=== PATIENT | female | born 2005 | race Caucasian/White ===

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

== ENCOUNTER → 2024-03-05 13:29 | Outpatient (BNVA) | payer OTHER, SELFPAY | PROVIDERS: PCP Pediatrics; Visit Provider Physician Assistant Surgical ==

== ENCOUNTER 2024-04-28 08:06 | Outpatient (AMB) | payer OTHER, SELFPAY ==
--- NOTE | 2024-04-28 08:43 | MHC.OFFVISWM ---
VS Expanded 04/28/24 09:00 Height 5 ft 2.5 in Weight 253 lb 4 oz BMI 45.6 Body Fat % 46.6 Body Fat Mass 118.2 Fat Free Mass 135.2 Visceral Fat Rating 12 Body Water % 38.5 Body Water Mass 97.4 Basal Metabolic Rate/Score 1,992 Intake Visit Reasons: [employer] SWL BMI 44.9 Allergies No Known Allergies Allergy (Verified 04/28/24 08:43) Medication List - Last Reconciled 04/28/24 by Josias Fiore MD dextroamphetamine-amphetamine 30 mg ER (Adderall XR) 30 mg PO DAILY norethindrone (contraceptive) 0.35 mg PO DAILY HPI HPI [employer] SWL BMI 44.9: Details: Start time: 8.38am, End time: 9.18am ?I spent 35 minutes speaking with the patient on the phone plus an additional 5 minutes reviewing and updating records for a total of 40 minutes HPI Comments Details: Previous weight loss effforts: [facility] program Wakes up: 5.30am, Sleeps: 8.30pm Breakfast: skips Lunch: 12.30pm (keto bread, peanuts, crackers) Dinner: 5pm (beans, chicken, beef, pork, rice) Snacks: 10am (fruit), Exercise: has a home treadmill Fluids: coffee: none, tea: (2/wk pineapple flavor), soda: none, juice: cranberry daily, ETOH: none PFSH Medical History (Updated 04/28/24 @ 08:48 by Josias Fiore MD) ADHD Tonsillectomy planned No known health problems Surgical History Hx of breast reduction, elective Hx of tonsillectomy Family History Mother No problems noted. Father No problems noted. Sister No problems noted. Brother No problems noted. Brother No problems noted. Social History Alcohol intake: never Patient Tobacco Use Status: Never used Tobacco Female Reproductive History Menstrual Age of Menarche: 12 Telehealth Telehealth Telehealth Platform: Telephone Location of provider rendering services: practice address Location of patient: address on file Patient Identification confirmed using: Name, : Yes Telehealth method: voice only Patient verbally consented to treatment: Yes Patient verbally consented to billing insurance company: Yes Patient informed of any privacy concerns related to visit: Yes Minutes spent on Phone/Video with Pt.: 40 Assessment & Plan Assessment & Plan (1) Morbid obesity: Code(s): E66.01 - Morbid (severe) obesity due to excess calories Category: Medical Plan: 1.? Plan for lap sleeve gastrectomy. If diaphragmatic or ventral hernias are present at time of surgery, these will be repaired laparoscopically as well. Risks and complications include possible conversion to an open procedure, anastomotic leak, bleeding requiring transfusion, small bowel obstruction, , DVT and pulmonary embolism, cardiac, or pulmonary complications, as terminal system operator complications such as anastomotic ulcer, insufficient weight loss and vitamin deficiencies. I emphasized the importance of close follow-up, adherence to instructions and good communication. 2. You will receive a link of our software irchard to generate an individualized nutritional and exercise plan specific for you. Please send me a screenshot of the plans you will generate Meal to include lean meat (beef, fish, pork, turkey, chicken), or togolese yogurt, or egg whites, or beans with a salad with olive oil and fruits (berries, pears, apples, kiwi). Avoid salt, breads, potatoes, rice, pasta, desserts. ?3. If you choose shakes, each shake would be drunk slowly, like coffee in a period of 2 hours. ?4. If you choose bars, cut each bar in 4 pieces and eat each piece in 30min ?to make each bar last 2 hours. ?5. I emphasized the importance of measuring accurately the food portion and measure it when serving the food in plate ?6. The meal portions include a specific number of forks of meat and salad. You always eat the meat portion but you can replace up to half of salad/vegetables portion with rice, potatoes or pasta, or a fruit ?if you like. The less you do it the better weight loss will be. ?7. One full-size fork is what it can be scooped on the fork without falling aside and not what can be bit with the fork. Use regular forks like those you find in a typical restaurant. ?8.? Please send me weight measurements as soon as possible and then once a week. Always include your diet and exercise plan. 9. The best choice would be to purchase a stationary bike, elliptical or treadmill at home that can track calories. Let me know if you do so I can give you an exercise plan. ?10.?It is important of avoiding and for at least 18 months postoperatively and has been discussed at the infosession. ?11. Goal is to lose at least 1.5-2lbs per week ?12. Goal to lose 10% of your weight before surgery, which is about 25lbs. Ultimate weight goal: 228lbs before surgery 13. Please follow the diet plan exactly without any change. If you don't like something about the plan or you feel hungry you need to communicate with me so I can help you revise the plan. You should not change the plan yourself. 14. To be scheduled for EGD to assess the anatomy of the stomach. The possibility of biopsies was discussed. Patient needs to avoid use of NSAIDs and aspirin for 1 week prior to EGD. Risks of perforation and bleeding was discussed with the patient. This will be an outpatient procedure with IV sedation.
[2024-04-28 09:00] VITALS: BMI 45.6
== END 2024-04-28 09:19 | disposition home or self-care (01) ==
LOC: HO.HBS 08:06
PROVIDERS: PCP Pediatrics; Visit Provider Surgery
DX: E66.01 Morbid (severe) obesity due to excess calories (principal); Z68.54 Body mass index [BMI] pediatric, 95th percentile for age to less than 120% of the 95th percentile for age
CPT/HCPCS: 99215

== ENCOUNTER → 2024-04-28 08:06 | Outpatient (BNVA) | payer OTHER, SELFPAY | PROVIDERS: PCP Pediatrics; Visit Provider Surgery ==

== ENCOUNTER 2024-05-19 16:21 | Outpatient (AMB) | payer OTHER, SELFPAY ==
--- NOTE | 2024-05-19 16:14 | MHC.WMTHER ---
Intake Intake Visit Reasons: TV BH Intake Allergies No Known Allergies Allergy (Verified 04/28/24 08:43) [facility] Medical History (Updated 04/28/24 @ 08:48 by Josias Fiore MD) ADHD Tonsillectomy planned No known health problems Surgical History Hx of breast reduction, elective Hx of tonsillectomy Family History Mother No problems noted. Father No problems noted. Sister No problems noted. Brother No problems noted. Brother No problems noted. Social History Alcohol intake: never Patient Tobacco Use Status: Never used Tobacco Female Reproductive History Menstrual Age of Menarche: 12 Behavioral Health Assessment Weight Management Therapy Therapy Notes Details Patient is looking to have weight loss surgery to help improve her health and quality of life. She is not in therapy currently but was in the past. She takes medication for ADHD perscribed by her doctor. She has no history of drug or alcohol abuse. Pt has no history of inpatient psychiatric admissions. Pt stated that she worries about her health due to her family history. Presenting Concerns Referral Source provider Reason for referral weight loss surgery evaluation Precipitating Event obesity Living Situation Current Living Situation Relative's/Guardian's Sydnie At risk of losing current housing? No Satisfied with current living situation? Yes Comments Pt lives with her mom, step father, and three siblings, 16, 11, and 8 years old. Food/Weight/Diet Expectations of change weight loss and maintenance History/Relationship with food Pt would skip meals all day and then over eat dinner and on. She would drink juices, smoothies in addition to food, take out, fast food. Pt reported that she would not let herself get hungry. History/Relationship with weight Pt reported that in 2019, she was not eating and over exercising, she weighed 120lbs. She worried about how she looked and being picked up. Pt reported that she was overweight as a child. She is currently at her heaviest. History/Relationship with dieting self diets, restricting Binge Eating Do you frequently eat large amounts of food in short periods of time, not feeling physically hungry? No Do you feel out of control when you eat a large amount of food in a short period of time? No Do you eat large amounts of food rapidly and typically alone? No Night Eating Do you wake up at least once during the night to eat? No If you wake up in the night, do you find that it is necessary to eat something in order to fall back asleep? No Do you have little or no appetite in the morning and feel very hungry in the evening, often overeating between dinner and when you go to bed? Yes Social History Family history and relationship Pt is single with no children and lives with her mother and siblings, She denied any history of trauma or abuse. 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 none Education Highest grade completed high school Preferred learning style Auditory, Verbal, Written, Learn by doing and Visual Currently enrolled in educational program? No Interested in further educational program? 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 No Meaningful activities walking, Financial Situation Describe current financial situation Comfortable Financial assistance? None Service Service? No Mental Health and Addiction Treatment Current/Past substance abuse? No Medical and Physical Health Summary Physical exam in the last year? Yes Pain Screening Current pain? No Pain in the last few months? No Medications Is the patient compliant with medications? Yes Does the patient have Bales Guardian in place? Not applicable Does the patient use complimentary health approaches? No Trauma/Abuse History History of trauma? No Questionnaires PHQ-9 Over the last 2 weeks, how often have you been bothered by any of the following problems? 1. Little interest or pleasure in doing things: several days 2. Feeling down, depressed, or hopeless: more than half the days 3. Trouble falling or staying asleep, or sleeping too much: not at all 4. Feeling tired or having little energy: several days 5. Poor appetite or overeating: nearly every day 6. Feeling bad about yourself - or that you are a failure or have let yourself or your family down: several days 7. Trouble concentrating on things, such as reading the newspaper or watching television: not at all 8. Moving or speaking so slowly that other people could have noticed. Or the opposite - being so fidgety or restless that you have been moving around a lot more than usual: not at all 9. Thoughts that you would be better off or of hurting yourself in some way: not at all Total score: 8 Source: Developed by Drs. Patrick Laguna, Stefani Aguila, Low Lechuga and colleagues, with an educational lili from [employer]. Binge Eating Scale Group 1 A. I don't feel self-conscious about my wt. or body size when I'm with others. B. I feel concerned about how I look to others, but it normally does not make me fell disappointed with myself C. I do get self-conscious about my appearance and wt. which makes me feel disappointed in myself. D. I feel very self-conscious about my wt. and frequently I feel intense shame and disgust for myself. I try to avoid social contacts because of my self-consciousness. Response Group 1: D Group 2 A. I don't have any difficulty eating slowly in the proper manner. B. Although I seem to gobble down foods, I don't end up feeling stuffed because of eating to much. C. At times, I tend to eat quickly and then, I feel uncomfortably full afterwards. D. I have the habit of bolting down my food, without really chewing it. When this happens I usually feel uncomfortably stuffed because I've eaten to much. Response Group 2: D Group 3 A. I feel capable to control my eating urges when I want to. B. I feel like I have failed to control my eating more than the average person. C. I feel utterly helpless when it comes to feeling in control of my eating urges. D. Because I feel so helpless about controlling my eating I have become very desperate about trying to get control. Response Group 3: D Group 4 A. I don't have the habit of eating when I'm bored. B. I sometimes eat when I'm bored, but often I'm able to get busy and get my mind off food. C. I have a regular habit of eating when I'm bored, but occasionally, I can use some other activity to get my mind off eating. D. I have a strong habit of eating when I'm bored. Nothing seems to help me breath the habit. Response Group 4: C Group 5 A. I'm usually physically hungry when I eat something. B. Occasionally, I eat something on impulse even though I really am not hungry. C. I have the regular habit of eating foods, that I might not really enjoy, to satisfy a hungry feeling even though physically, I don't need the food. D. Although I'm not physically hungry, I get a hungry feeling in my mouth that only seems to be satisfied when I eat a food, like sandwich, that fills my mouth. Sometimes, when I eat the food to satisfy my mouth hunger, I then spit the food out so I won't gain weight. Response Group 5: B Group 6 A. I don't feel any guilt or self-hate after I overeat. B. After I overeat, occasionally I feel guilt or self-hate. C. Almost all the time I experience strong guilt or self-hate after I overeat. Response Group 6: C Group 7 A. I don't lose total control of my eating when dieting even after periods when I overeat. B. Sometimes when I eat a forbidden food on a diet, I feel like I blew it and eat even more. C. Frequently, I have the habit of saying to myself, I've blown it now, why not go all the way, when I overeat on a diet. When that happens I eat more. D. I have a regular habit of starting a strict diets for myself but I break the diets by going on an eating binge. My life seems to be either a feast or famine. Response Group 7: D Group 8 A. I rarely eat so much food that I feel uncomfortably stuffed afterwards. B. Usually about once a month, I each such a quantity of food, I end up feeling very stuffed. C. I have regular periods during the month when I eat large amounts of food, either at mealtime or at snacks. D. I eat so much food that I regularly feel quite uncomfortable after eating and sometimes a bit nauseous. Response Group 8: D Group 9 A. My level of calorie intake does not go up very high or go down very low on a regular basis. B. Sometimes after I overeat, I will try to reduce my caloric intake to almost nothing to compensate for the excess calories I've eaten. C. I have a regular habit of overeating during the night. It seems that my routine is not to be hungry in the morning but overeat in the evening. D. In my adult years, I have had week-long periods where I practically starve myself. This follows periods when I overeat. It seems I live a life of either feast or famine. Response Group 9: C Group 10 A. I usually am able to stop eating when I want to. I know when enough is enough. B. Every so often, I experience a compulsion to eat which I can't seem to control. C. Frequently, I experience strong urges to eat which I seem unable to control, but at other times I can control my eating urges. D. I feel incapable of controlling urges to eat. I have a fear of not being able to stop eating voluntarily. Response Group 10: C Group 11 A. I don't have any problem stopping eating when I feel full. B. I usually can stop eating when I feel full but occasionally overeat leaving me feeling uncomfortably stuffed. C. I have a problem stopping eating once I start and usually I feel uncomfortably stuffed after I eat a meal. D. Because I have a problem not being able to stop eating when I want, I sometimes have to induce vomiting to relieve my stuffed feeling. Response Group 11: C Group 12 A. I seem to eat just as much when I'm with others, Family social gatherings as when I'm by myself. B. Sometimes, when I'm with other persons, I don't eat as much as I want to eat because I'm self-conscious about my eating. C. Frequently, I eat only a small amount of food when others are present, because I'm very embarrassed about my eating. D. I feel so ashamed about overeating that I pick times to overeat when I know no one will see me. I feel like a closet eater. Response Group 12: D Group 13 A. I eat three meals a day with only an occasional between meal snack. B. I eat 3 meals a day, but I also normally snack between meals. C. When I am snacking heavily, I get in the habit of skipping regular meals. D. There are regular periods when I seem to be continually eating, with no planned meals. Response Group 13: D Group 14 A. I don't think much about trying to control unwanted eating urges. B. At least some of the time, I feel my thoughts are pre-occupied with trying to control my eating urges. C. I feel that frequently I spend much time thinking about how much I ate or about trying not to eat anymore. D. It seems to me that most of my waking hours are pre-occupied by thoughts about eating or not eating. I feel like I'm constantly struggling not to eat. Response Group 14: D Group 15 A. I don't think about food a great deal. B. I have strong craving for food but they last only for brief periods of time. C. I have days when I can't seem to think about anything else but food. D. Most of my days seem to be pre-occupied with thoughts about food. I feel like I live to eat. Response Group 15: B Group 16 A. I usually know whether or not I'm physically hungry. I take the right portion of food to satisfy me. B. Occasionally, I feel uncertain about knowing whether or not I'm physically hungry. A these times it's hard to know how much food I should take to satisfy me. C. Even though I might know how many calories I should eat, I don't have any idea what is a normal amount of food for me. Response Group 16: B Binge Eating Score: 37 Score less than 17 Minimal Risk Score between 18-26 Moderate Risk Score between 27-46 High Risk Assessment & Plan Assessment & Plan (1) ADHD: Code(s): F90.9 - Attention-deficit hyperactivity disorder, unspecified type (2) Vitamin D deficiency: Code(s): E55.9 - Vitamin D deficiency, unspecified (3) Morbid obesity: Code(s): E66.01 - Morbid (severe) obesity due to excess calories Plan PT has a history of under eating and overeating. We discussed the importance of learning to have a healthy and balanced rel. with food for rn long term care maitnenance. She was encouraged to reach out for help as needed. She is cleared for surgery when ready. Telehealth Telehealth Telehealth Platform: Telephone Location of provider rendering services: practice address Location of patient: address on file Patient Identification confirmed using: Name, : Yes Telehealth method: voice only Patient verbally consented to treatment: Yes Patient verbally consented to billing insurance company: Yes Patient informed of any privacy concerns related to visit: Yes Minutes spent on Phone/Video with Pt.: 40 Coding Level of Care Code Tele Psy Diag Eval (67695) Diagnoses ADHD F90.9 Vitamin D deficiency E55.9 Morbid obesity E66.01 Time Spent (min) 40
== END 2024-05-19 16:35 | disposition home or self-care (01) ==
LOC: HO.HBST 16:21
PROVIDERS: PCP Pediatrics; Visit Provider Counselor Mental Health
DX: F90.9 Attention-deficit hyperactivity disorder, unspecified type (principal); E55.9 Vitamin D deficiency, unspecified; E66.01 Morbid (severe) obesity due to excess calories
CPT/HCPCS: 90791

== ENCOUNTER → 2024-05-19 16:21 | Outpatient (BNVA) | payer OTHER, SELFPAY | PROVIDERS: PCP Pediatrics; Visit Provider Counselor Mental Health ==

== ENCOUNTER 2024-07-15 05:58 | Day surgery (SDC) | payer OTHER, SELFPAY ==
--- NOTE | 2024-07-14 16:03 | HO.ANESPROP2 ---
Documented by User: Shira Rebollar NP 07/14/24 16:03 HPI - Anesthesia Eval Consult details Narrative: 18yo F for Upper Endoscopy PMFSH Active Problems Active Problems: All Active Problems ADHD (Acute) Normal gynecologic examination (Acute) control counseling (Acute) Liver fibrosis (Acute) NAFLD (nonalcoholic fatty liver disease) (Acute) Vitamin D deficiency (Acute) Morbid obesity (Acute) Past Medical History Medical History ADHD Tonsillectomy planned No known health problems Family History Family History Mother No problems noted. Father No problems noted. Sister No problems noted. Brother No problems noted. Brother No problems noted. Surgical History Surgical History Hx of wisdom tooth extraction Hx of breast reduction, elective Hx of tonsillectomy Social History Social History Alcohol intake: never Patient Tobacco Use Status: Never used Tobacco Meds Allergies Allergy/AdvReac Type Severity Reaction Status Date / Time No Known Allergies Allergy Verified 07/15/24 06:15 Home Medications ?Medication ?Instructions ?Recorded ?Confirmed ?Last Taken ?Type dextroamphetamine-amphetamine ER 30 mg PO DAILY 03/19/23 07/15/24 Unknown History 30 mg 24hr capsule,extend release (Adderall XR) Assessment and Plan Assessment Anesthesia Assessment: Chart Reviewed Documented by User: Irene Anderson MD 07/15/24 09:23 PMFSH Active Problems Active Problems: All Active Problems ADHD (Acute) Normal gynecologic examination (Acute) control counseling (Acute) Liver fibrosis (Acute) NAFLD (nonalcoholic fatty liver disease) (Acute) Vitamin D deficiency (Acute) Morbid obesity BMI 45.5 Denies FATOUMATA Past Medical History Medical History ADHD Tonsillectomy planned No known health problems Family History Family History Mother No problems noted. Father No problems noted. Sister No problems noted. Brother No problems noted. Brother No problems noted. Family history of problems with anesthesia: No Surgical History Surgical History Hx of wisdom tooth extraction Hx of breast reduction, elective Hx of tonsillectomy History of Problems with Anesthesia: No Social History Social History Alcohol intake: never Patient Tobacco Use Status: Never used Tobacco Meds Allergies Allergy/AdvReac Type Severity Reaction Status Date / Time No Known Allergies Allergy Verified 07/15/24 06:15 Home Medications ?Medication ?Instructions ?Recorded ?Confirmed ?Last Taken ?Type dextroamphetamine-amphetamine ER 30 mg PO DAILY 03/19/23 07/15/24 Unknown History 30 mg 24hr capsule,extend release (Adderall XR) Exam Height,Weight and Vital Signs: Height 5 ft 2 in Weight 112.808 kg Vital Signs Temp Pulse Resp BP Pulse Ox O2 Del Method 97.1 F 84 15 111/70 98 Room Air 07/15/24 06:32 07/15/24 06:32 07/15/24 06:32 07/15/24 06:32 07/15/24 06:32 07/15/24 06:32 Pertinent Lab Results Pertinent Lab Results: Lab Results 07/15/24 Range/Units 06:15 Urine Test NEGATIVE (NEGATIVE) Airway Mallampati Class: II TM Dist: >3cm Neck ROM: Full Loose/Missing/Broken Teeth: No (Denies broken, loose, missing teeth) Heart: RRR Lungs: CTAB Assessment and Plan Assessment Anesthesia Assessment: Anesthesia Plan Discussed and Chart Reviewed Final Anesthetic Review Family History of Problems with Anesthesia: No History of Problems with Anesthesia: No NPO: Yes ASA Class: III Final Preanesthetic Review: No Changes in Pt Med Stat, Meds/Allgs Chart Reviewed, Consent Obtained/Reviewed and Anes Risks/Benef Reviewed Patient Risk: Intermediate Procedure Risk: Low Assessment/Block/Sedation in SS: Assess/Block/Sedation-SS Anesthetic Plan Anesthetic Plan: TIVA Disposition: Standard PACU
[2024-07-15 06:16] VITALS: BMI 45.5
[2024-07-15 06:32] VITALS: BP 111/70; PULSE 84; RESP 15; TEMP 36.2; O2SAT 98
[2024-07-15 06:38] LABS: UPreg QC Valid YES; Urine Pregnancy NEGATIVE (NEGATIVE)
[2024-07-15] MEDS: Lactated Ringers 1,000 ML 80 ML IVCONT (06:47)
--- NOTE | 2024-07-15 07:18 | MHC.SHP ---
Pre-Procedural Eval Section A - 24 Hr Update-Section A only Date of Service: 07/15/24 The patient is an INPATIENT: No The patient has been examined within 24 hours of the surgical procedure. The History & Physical has been completed within 30 days and I have reviewed it.: Yes Section B - Complete if H&P > 30 days Chief Complaint: Morbid (severe) obesity due to excess calories Relevant Family History (Specify if Yes): No Relevant Social History: None Present Medications: None Medical History: No relevant PMH History of Previous Operations: No relevant previous surgery Allergies: Allergies Allergy/AdvReac Type Severity Reaction Status Date / Time No Known Allergies Allergy Verified 07/15/24 06:15 Review of Systems Sugical H&P ROS: Negative: Constitution, Cardiovascular, Respiratory, Neurological, Psychiatric, Hem-Onc, Allergic/Immunologic, Gastrointestinal, Genitourinary, Musculoskeletal, Integumentary, Endocrine and Eyes/Ears/Nose/Throat Exam Surgical H&P Exam: Normal: HEENT, Normal: Heart, Normal: Lungs, Normal: Extremities, Normal: Abdomen, Normal: Skin and Normal: Neurological Plan Diagnosis/Plan: Unchanged (EGD to assess the anatomy of the stomach. Risks of bleeding or perforation were disucssed with the patient and she is in agreement with the plan.) I have reviewed the history and physical and performed a pertinent physical examination on my patient. No changes have occurred unless specified. Time Spent With Patient Time: Total time managing care of this patient today ____ minutes.
--- NOTE | 2024-07-15 08:00 | P.BOP_ITS ---
Brief Operative Note Date of Service: 07/15/24 Pre-op diagnosis: Morbid obesity Post-op diagnosis: same (Presence of some food contents) Procedure: PROCEDURE DATE: 07/15/2024 PREOPERATIVE DIAGNOSIS: Morbid obesity POSTOPERATIVE DIAGNOSIS: ?Same as above. 1) small hiatal hernia, 2) distal gastritis PROCEDURE: Shnaksza-oilctm-foswzwlraisj with biopsies Surgeon: ?Bart Fiore M.D.. Ph.D. Waste And Batting Waste Chopper: None ? Anesthesia: IV sedation Estimated blood loss: ?Minimal FINDINGS AND PROCEDURE: ? OPERATIVE INDICATIONS: ?The patient is a 18 year old female known to me who is interested in bariatric surgery. Based on this information I recommended an upper endoscopy to evaluate the anatomy of her stomach. Risks and complications of the surgery were discussed with the patient in advance particularly the poss ibility of perforation or bleeding that may require surgical intervention. The patient understood the risks and was in agreement with the plan. ? PROCEDURE: After informed consent was obtained by the patient, the patient was ?transferred to the Operating Room and was placed in the supine position.? After successful induction of IV sedation, a mouth block was inserted and the patient was placed in the left lateral decubitus position. An upper endoscopy was performed next, the oropharynx and esophagus appeared within the normal limits. There was no hiatal hernia. The z-line was smooth. One biopsy was obtained from the distal esophagus 2-3 cm proximal to the GE junction and two additional biopsies from the GE junction. The stomach was entered and it appeared to be of normal size. There was a small amount of food contents in the mid-stomach and not near the GE junction. There was no gastritis. There was no stricture or ulcer. A biopsy was obtained from the gastric fundus and the antrum. No significant bleeding was noted from any of the biopsy sites. Retroflexion of the scope revealed a normal GE junction. The scope was then advanced into the duodenum which appeared to be normal as well. At that point the duodenum ?and the stomach were decompressed and the scope was withdrawn from the patient's mouth. The patient extubated and was transferred in stable condition to the [facility] for further care. I was present and performed all steps of the procedure. There were no residents to assist with this case. Bart Fiore M.D., Ph.D. Surgeon: Josias Fiore MD Anesthesia: MAC Was an Waste And Batting Waste Chopper used for this Procedure?: No Estimated blood loss (mL): 0 IV fluids (mL): 400 Urine output (mL): 0 (No Flowers to record output) Pathology: other (1) antrum x1, 2) fundus x1, 3) GE junction x2, 4) distal esophagus x1) Condition: stable Disposition: PACU
[2024-07-15 08:02] VITALS: BP 104/56; PULSE 94; RESP 18; TEMP 36.2; O2SAT 99
[2024-07-15 08:17] VITALS: BP 112/70; PULSE 93; RESP 18; O2SAT 100
[2024-07-15 08:30] VITALS: BP 126/88; PULSE 79; RESP 17; TEMP 36.2; O2SAT 99
== END 2024-07-15 08:53 | disposition home or self-care (01) ==
PROVIDERS: PCP Pediatrics; Visit Provider Surgery
PROC: 0DJ08ZZ Inspection of Upper Intestinal Tract, Via Natural or Artificial Opening Endoscopic (ICD-10-PCS; CPT 43235; principal; 2024-07-15 07:30)
DX: E66.01 Morbid (severe) obesity due to excess calories (principal); K44.9 Diaphragmatic hernia without obstruction or gangrene; K29.60 Other gastritis without bleeding; Z79.899 Other long term (current) drug therapy; F90.9 Attention-deficit hyperactivity disorder, unspecified type; Z98.890 Other specified postprocedural states
CPT/HCPCS: 43239; 81025; 88305; 88313; 88342; J2704

== ENCOUNTER → 2024-07-15 05:58 | Outpatient (BNV) | payer OTHER, SELFPAY | PROVIDERS: PCP Pediatrics; Visit Provider Surgery | DX: K44.9 Diaphragmatic hernia without obstruction or gangrene (principal) | CPT/HCPCS: 43239 ==

== ENCOUNTER → 2024-08-25 08:40 | Outpatient (BNVA) | payer OTHER, SELFPAY | PROVIDERS: PCP Pediatrics; Visit Provider Surgery ==

== ENCOUNTER 2024-08-25 15:30 | Outpatient (AMB) | payer OTHER, SELFPAY ==
[2024-08-25 14:47] VITALS: BMI 41.5
--- NOTE | 2024-08-25 14:47 | A.OFFVIS_ITS ---
VS Expanded 08/25/24 14:47 Height 5 ft 2.5 in Weight 230 lb 6 oz BMI 41.5 Body Fat % 53.7 Body Fat Mass 123.8 Fat Free Mass 106.7 Visceral Fat Rating 23.6 Body Water % 31.8 Body Water Mass 73.3 Basal Metabolic Rate/Score 1,416 Intake Visit Reasons: TV Pre Op LSG 09/03/24 *SEE COMMENTS* Allergies No Known Allergies Allergy (Unverified 08/28/24 11:40) HPI HPI TV Pre Op LSG 09/03/24 *SEE COMMENTS*: Details: Start time: 3pm, End time: 3.30pm ?I spent 25 minutes speaking with the patient on the phone plus an additional 5 minutes reviewing and updating records for a total of 30 minutes HPI Comments Details: Overall weight loss: 22.8lbs, or 9% TBWL Is doing one Premier shake (1/2 bottle), 2 Build protein bars and one meal (8 forkfuls each) PFSH Medical History (Updated 08/28/24 @ 11:40 by Gali Hebert) Constipation ADHD Surgical History (Updated 08/28/24 @ 11:40 by Gali Hebert) S/P LASIK surgery of both eyes (06/12/24) History of esophagogastroduodenoscopy (EGD) (07/15/24) Hx of wisdom tooth extraction Hx of breast reduction, elective (~2021) Hx of tonsillectomy Family History (System 08/28/24 @ 11:40 by Gali Hebert) Mother No problems noted. Father No problems noted. Sister No problems noted. Brother No problems noted. Brother No problems noted. Social History (Updated 08/28/24 @ 14:13 by Ольга Clifford RN) Household Members: Family Housing: House Are you a primary nurse behavioral health care to a significant other at home: No Do you presently have visiting nurse or other home services: No 75 years or older and lives alone: No Alcohol intake: never Patient Tobacco Use Status: Never used Tobacco e-Cigarette/Vaping Use: Never Used Use of substances other than those prescribed or required for medical reasons: No Advance Directives: No Advance Directives Information Provided: Yes Advance Directives on File: No Healthcare Proxy: No Recently lost weight without trying: No Female Reproductive History Menstrual Age of Menarche: 12 Physical Exam Vital Signs: BMI result Body Mass Index 41.5 Telehealth Telehealth Telehealth Platform: Telephone Location of provider rendering services: practice address Location of patient: address on file Patient Identification confirmed using: Name, : Yes Telehealth method: voice only Patient verbally consented to treatment: Yes Patient verbally consented to billing insurance company: Yes Patient informed of any privacy concerns related to visit: Yes Minutes spent on Phone/Video with Pt.: 30 Assessment & Plan Assessment & Plan (1) Morbid obesity: Code(s): E66.01 - Morbid (severe) obesity due to excess calories Category: Medical Plan: 1. Plan for lap sleeve gastrectomy including upper GI endoscopy. All tests has been completed and reviewed and the patient is cleared for the surgery.? If diaphragmatic or ventral hernias are present at time of surgery, these will be repaired laparoscopically as well. Risks and complications were discussed in detail including possible conversion to an open procedure, anastomotic leak, bleeding requiring transfusion, small bowel obstruction, , DVT and pulmonary embolism, cardiac, or pulmonary complications, as detention complications such as anastomotic ulcer, insufficient weight loss and vitamin deficiencies. I emphasized the importance of close follow-up, adherence to instructions and good communication. So far she has proven to be an excellent communicator and very compliant with all our directions accomplishing a great weight loss. I believe that she is an excellent candidate and she is ready. 2. Preop prescriptions were provided and explained the purpose of each one. Need to be purchased preop. Start Pantoprazole now as you get it from the pharmacy, 1 pill per day. Sucralfate and Zofran are for after surgery as needed. 3. Bowel prep: please do 7 packets ?of Miralax mixing each one with a an 8oz glass of water, crystal light, gatorade zero, or propel ?on 09/01/24 and the same amount on 09/02/24. The Miralax you begin with one packet at a time in 8oz water or crystal light, gatorade zero, or propel ?as early in the day as you can and you do them back to back until you finish them. Continue the protein shakes during ?the bowel prep. 4. Needs to purchase 1oz medicine cups . 5. Needs to purchase Children's liquid Tylenol for postop pain control. 6. She needs to stop all the vitamins on 05/03/21. Avoid aspirin, motrin, Advil, Aleve, Ibuprofen, Naproxyn. Tylenol is OK. 7. She needs to purchase the Celebrate 4:1 protein shakes or the Celebrate multivitamins from the hospital's gift shop. 8. Will do basic preop blood work-up any day between Sunday10/02/22 and Sunday10/06/22 fasting for 12 hours and is scheduled to see the Anesthesiologist prior to the day of surgery. 9. Importance of adherence to postop folllow-up and recommendations was underscored and she understands that. 10. Continue toavoid food and bars and continue with 4 premade PREMIER protein shakes (HALF bottle EACH mixed with 4oz almond milk) at 11am-1pm, 2pm-4pm, 5pm- 7pm and 8pm-10pm one more WHOLE bottle PREMIER premade protein shake ?at 11pm- 1am 11. No soups, broths or V8 12. The patient's?medical?history has been reviewed and they are considered low risk for post op DVT and therefore DVT prophylaxis is not considered necessary. Travel after surgery was reviewed. The patient has not disclosed any travel plans during the first 30 days after surgery and they have been advised that within the first 30 days after surgery any bus, plane, train or car travel over 2 hours in duration is contraindicated due to the possibility of developing blood clots from immobility. Any travel, needs to include periods of ambulation of 10 minutes in duration every 2 hours.? Patient was instructed to discuss any plans for travel during this period with their bariatric surgeon.? 13. Please take at the day of surgery the following medications: NONE 14. Stop any control pills and don't use them for one month after surgery 15. Absolutely no smoking or vaping, or marijuana until the surgery and for at least the first 4 weeks. Only nicotine patches are allowed. 16. Send me weight measurements TODAY 08/25/24, on Sunday08/30/24 and then on Sunday09/03/24, the day of surgery before you go to the hospital. 17. Avoid any steroids by mouth for any reason. Let me know if someone prescribes them to you 18. These instructions supersede anything else you read in the handbook, anything you watched in videos or classes or you were told by any other provider. If there is any conflict, you follow the above instructions and nothing else. Orders: Orders Insulin 08/28/24 E66. - Morbid (severe) obesity due to excess calories Hemoglobin A1c 08/28/24 E66. - Morbid (severe) obesity due to excess calories Lipid Panel 08/28/24 E66. - Morbid (severe) obesity due to excess calories IRON PROFILE 08/28/24 E66. - Morbid (severe) obesity due to excess calories Comprehensive Met. Panel 08/28/24 E66. - Morbid (severe) obesity due to exc ess calories Vitamin B12 and Folate 08/28/24 E66. - Morbid (severe) obesity due to excess calories C Reactive Protein 08/28/24 E66. - Morbid (severe) obesity due to excess calories Vitamin B1 08/28/24 E66. - Morbid (severe) obesity due to excess calories TSH reflex Free T4 08/28/24 E66. - Morbid (severe) obesity due to excess calories H Pylori Breath Test 08/25/24 E66. - Morbid (severe) obesity due to excess calories Complete Blood Count Auto Diff 08/28/24 E66. - Morbid (severe) obesity due to excess calories Zinc 08/28/24 E66. - Morbid (severe) obesity due to excess calories Vitamin A 08/28/24 E66. - Morbid (severe) obesity due to excess calories Ferritin 08/28/24 E66. - Morbid (severe) obesity due to excess calories Vitamin D 25-OH Total 08/28/24 E66. - Morbid (severe) obesity due to excess calories Medications: New pantoprazole 40 mg PO DAILY 90 tabs 0RF K21.9 - Gastro-esophageal reflux disease without esophagitis sucralfate 10 mL PO BID 600 mL 2RF K21.9 - Gastro-esophageal reflux disease without esophagitis ondansetron Only take one every 12 hours as needed if you have nausea 4 mg PO Q12H 20 tabs 0RF nausea and vomiting R11.0 - Nausea polyethylene glycol 3350 Mix each measuring cup with 8oz of water, Crystal light, or Gatorade zero, or Propel and do 7 measuring cups on 09/01/24 and another 7 measuring cups on 09/02/24 17 grams PO DAILY 238 grams 0RF Z01.818 - Encounter for other preprocedural examination
== END 2024-08-29 13:04 | disposition home or self-care (01) ==
PROVIDERS: Visit Provider Surgery
DX: E66.01 Morbid (severe) obesity due to excess calories (principal)
CPT/HCPCS: 99214

== ENCOUNTER → 2024-08-28 10:46 | Outpatient (REF) | payer OTHER, SELFPAY ==
--- NOTE | 2024-08-28 10:54 | ECG_ITS ---
Test Reason : obesity Blood Pressure : / mmHG Vent. Rate : 055 BPM Atrial Rate : 055 BPM P-R Int : 134 ms QRS Dur : 084 ms QT Int : 432 ms P-R-T Axes : 001 008 018 degrees QTc Int : 413 ms Sinus bradycardia Minimal voltage criteria for LVH, may be normal variant ( R in aVL ) Borderline ECG When compared with ECG of 28-FEB-2023 14:10, No significant change was found Referred By: Josias Fiore Electronically Signed By:LUIS GARCIA
[2024-08-28 11:38] LABS: Basophils Absolute Auto 0.1 X10*3/uL (0.0-0.2); Eosinophils Absolute Auto 0.1 X10*3/uL (0.0-0.4); Neutrophils Percent Auto 72.5 % (45-73); PLT CLUMP 1; SCAN SMEAR FLAG 1
[2024-08-28 11:45] LABS: Estimated Average Glucose 103 mg/dL; Hemoglobin A1C 107.2794 umol/L; Hemoglobin A1c % 5.2 % (<6.0); Total Hemoglobin (HGBA1C) 3258.4548 umol/L
[2024-08-28 12:06] LABS: Basophils Percent Auto 0.4 % (0-2); Hematocrit 39.9 % (37.0-47.0); Hemoglobin 13.1 g/dl (12.0-16.0); Imm Gran Abs Auto 0.07 X10*3/uL (0.00-0.03); Imm Gran Pct Auto 0.6 % (0.0-0.4); Lymphocytes Absolute Auto 2.1 X10*3/uL (1.2-4.9); Lymphocytes Percent Auto 17.3 % (20-40); Mean Corpuscular HGB Conc 32.8 g/dl (31.0-35.0); Mean Corpuscular Hemoglobin 25.7 pg (27.0-33.0); Mean Corpuscular Volume 78.4 fL (80.0-98.0); Mean Platelet Volume 11.1 fL (9.4-12.3); Monocytes Percent Auto 8.2 % (2-11); Platelet Count 365 X10*3/uL (160-400); Red Blood Count 5.09 X10*6/uL (4.20-5.50); White Blood Count 12.4 X10*3/uL (4.8-10.8)
[2024-08-28 12:07] LABS: MANUAL DIFF FLAG NO
[2024-08-28 12:17] LABS: Alanine Aminotransferase 30 U/L (0-31); Albumin Level 3.9 g/dL (3.5-5.0); Alkaline Phosphatase 67 U/L (39-117); Anion Gap 13 (12-20); Aspartate Amino Transferase 32 U/L (5-31); Bilirubin Total 0.9 mg/dL (0.0-1.0); Blood Urea Nitrogen 14 mg/dL (9-16); C Reactive Protein 1.82 mg/dL (< or = 0.50); Calcium 9.6 mg/dL (8.4-10.2); Carbon Dioxide 24 mmol/L (22-29); Chloride 106 mmol/L (96-108); Cholesterol 174 mg/dL (<200); Estimated Glomerular Filt Rate > 60; Glucose Random 89 mg/dL (60-115); HDL Cholesterol 44 mg/dL (>40); Iron 125 mcg/dL (30-160); LDL Cholesterol Calculated 118 mg/dL (<100); Percent Iron Saturation 44 % (15-50); Potassium 3.7 mmol/L (3.3-5.1); Sodium 139 mmol/L (135-145); Total Iron Binding Capacity 282 mcg/dL (228-428); Total Protein 7.6 g/dL (6.5-8.0); Triglycerides 64 mg/dL (<150); Unsaturated Iron Binding 157 ug/dL
[2024-08-28 12:22] LABS: Ferritin 87 ng/mL (10-122); Insulin 18 uU/mL (2-29); TSH reflex Free T4 2.15 uIU/mL (0.32-4.0); Vitamin D 25-OH Total 18.9 ng/mL (>30)
[2024-08-28 12:47] LABS: Folate 10.1 ng/mL (> or = 4.0); Vitamin B12 358 pg/mL (200-900)
[2024-08-31 22:49] LABS: Zinc 61 mcg/dL (60-130)
[2024-09-03 06:23] LABS: Vitamin B1 12 nmol/L (8-30)
[2024-09-04 23:08] LABS: Vitamin A 40 mcg/dL (26-72)
== END ==
LOC: HO.CARD 10:46
PROVIDERS: Visit Provider Surgery
DX: E66.01 Morbid (severe) obesity due to excess calories (principal); E55.9 Vitamin D deficiency, unspecified
CPT/HCPCS: 36415; 80053; 80061; 82306; 82607; 82728; 82746; 83036; 83525; 83540; 84425; 84443; 84590; 84630; 85025; 86140; 93005

== ENCOUNTER → 2024-08-28 10:54 | Outpatient (BNV) | payer OTHER, SELFPAY | PROVIDERS: Visit Provider Internal Medicine | DX: R00.1 Bradycardia, unspecified (principal) | CPT/HCPCS: 93010 ==

== ENCOUNTER 2024-09-03 08:52 | Outpatient (REF) | payer OTHER, SELFPAY | END 2024-09-03 08:53 | disposition home or self-care (01) | LOC: HO.LAB 08:52 | PROVIDERS: Visit Provider Surgery | DX: Z13.89 Encounter for screening for other disorder (principal) ==

== ENCOUNTER 2024-09-03 11:35 | Inpatient (IN) | payer OTHER, SELFPAY ==
[2024-08-27 12:13] VITALS: BMI 42.1
--- NOTE | 2024-09-01 14:59 | HO.ANESPROP2 ---
Documented by User: Shira Rebollar NP 09/01/24 15:00 HPI - Anesthesia Eval Consult details Narrative: 18yo F for Gastrectomy Sleeve,EGD,possibel Diaphragmatic Hernia,possible Ventral Hernia,possible Open PMFSH Active Problems Active Problems: All Active Problems Pre-op evaluation (Acute) ADHD (Acute) Normal gynecologic examination (Acute) control counseling (Acute) Liver fibrosis (Acute) NAFLD (nonalcoholic fatty liver disease) (Acute) Vitamin D deficiency (Acute) Morbid obesity (Acute) Past Medical History Medical History (Updated 09/01/24 @ 14:09 by CANDICE Khan) Constipation ADHD Family History Family History (System 08/28/24 @ 11:40 by Gali Hebert) Mother No problems noted. Father No problems noted. Sister No problems noted. Brother No problems noted. Brother No problems noted. Family history of problems with anesthesia: No Surgical History Surgical History (Updated 08/28/24 @ 11:40 by Gali Hebert) S/P LASIK surgery of both eyes (06/12/24) History of esophagogastroduodenoscopy (EGD) (07/15/24) Hx of wisdom tooth extraction Hx of breast reduction, elective (~2021) Hx of tonsillectomy History of Problems with Anesthesia: No Social History Social History (Updated 08/28/24 @ 14:13 by Ольга Clifford RN) Household Members: Family Housing: House Are you a primary care management specialist to a significant other at home: No Do you presently have visiting nurse or other home services: No Alcohol intake: never Patient Tobacco Use Status: Never used Tobacco e-Cigarette/Vaping Use: Never Used Use of substances other than those prescribed or required for medical reasons: No Have you been hit, kicked, punched, or otherwise hurt by someone within the past year? If so, by whom?: No Are you DNR?: No Advance Directives: No Advance Directives Information Provided: Yes Advance Directives on File: No Healthcare Proxy: No Recently lost weight without trying: No Patient : No FDLMP: 07/29/2024 : No Poor oral hygiene: No Meds Allergies Allergy/AdvReac Type Severity Reaction Status Date / Time No Known Allergies Allergy Verified 09/03/24 11:41 Home Medications ?Medication ?Instructions ?Recorded ?Confirmed ?Last Taken ?Type dextroamphetamine-amphetamine ER 30 mg PO DAILY 03/19/23 08/27/24 09/01/24 History 30 mg 24hr capsule,extend release (Adderall XR) Exam Height,Weight and Vital Signs: Height 5 ft 2.5 in Weight 106.141 kg Pertinent Lab Results Pertinent Lab Results: Laboratory Tests 08/28/24 11:19 WBC 12.4 H Hgb 13.1 Hct 39.9 Plt Count 365 Sodium 139 Potassium 3.7 Chloride 106 Carbon Dioxide 24 BUN 14 Creatinine 0.92 Narrative Narrative: EKG 07/2024 Vent. Rate : 055 BPM Atrial Rate : 055 BPM P-R Int : 134 ms QRS Dur : 084 ms QT Int : 432 ms P-R-T Axes : 001 008 018 degrees QTc Int : 413 ms Sinus bradycardia Minimal voltage criteria for LVH, may be normal variant ( R in aVL ) Borderline ECG When compared with ECG of 28-FEB-2023 14:10, No significant change was found Assessment and Plan Assessment Anesthesia Assessment: Chart Reviewed Final Anesthetic Review Family History of Problems with Anesthesia: No History of Problems with Anesthesia: No Documented by User: Lissette Clement MD 09/03/24 12:40 [facility] Past Medical History Medical History (Updated 09/01/24 @ 14:09 by CANDICE Khan) Constipation ADHD Family History Family History (System 08/28/24 @ 11:40 by Gali Hebert) Mother No problems noted. Father No problems noted. Sister No problems noted. Brother No problems noted. Brother No problems noted. Surgical History Surgical History (Updated 08/28/24 @ 11:40 by Gali Hebert) S/P LASIK surgery of both eyes (06/12/24) History of esophagogastroduodenoscopy (EGD) (07/15/24) Hx of wisdom tooth extraction Hx of breast reduction, elective (~2021) Hx of tonsillectomy Social History Social History (Updated 08/28/24 @ 14:13 by Ольга Clifford RN) Household Members: Family Housing: House Are you a primary care management specialist to a significant other at home: No Do you presently have visiting nurse or other home services: No Alcohol intake: never Patient Tobacco Use Status: Never used Tobacco e-Cigarette/Vaping Use: Never Used Use of substances other than those prescribed or required for medical reasons: No Have you been hit, kicked, punched, or otherwise hurt by someone within the past year? If so, by whom?: No Are you DNR?: No Advance Directives: No Advance Directives Information Provided: Yes Advance Directives on File: No Healthcare Proxy: No Recently lost weight without trying: No Patient : No FDLMP: 07/29/2024 : No Poor oral hygiene: No Meds Allergies Allergy/AdvReac Type Severity Reaction Status Date / Time No Known Allergies Allergy Verified 09/03/24 11:41 Home Medications ?Medication ?Instructions ?Recorded ?Confirmed ?Last Taken ?Type dextroamphetamine-amphetamine ER 30 mg PO DAILY 03/19/23 08/27/24 09/01/24 History 30 mg 24hr capsule,extend release (Adderall XR) Exam Airway Mallampati Class: II TM Dist: >3cm Neck ROM: Full Heart: rrr Lungs: cta Assessment and Plan Assessment Anesthesia Assessment: Anesthesia Plan Discussed Final Anesthetic Review NPO: Yes ASA Class: III Final Preanesthetic Review: No Changes in Pt Med Stat, Meds/Allgs Chart Reviewed and Consent Obtained/Reviewed Patient Risk: Intermediate Procedure Risk: Intermediate Anesthetic Plan Anesthetic Plan: GA Disposition: Standard PACU
[2024-09-03] VITALS (10 sets, daily range): BP systolic 112–144; BP diastolic 57–88; PULSE 53–86; RESP 14–20; TEMP 36–36.8; O2SAT 97–100; BMI 42.5
[2024-09-03 11:30] LABS: UPreg QC Valid YES; Urine Pregnancy NEGATIVE (NEGATIVE)
--- NOTE | 2024-09-03 12:14 | PHA.MEDREC ---
Pharmacy Consult ? Medication Reconciliation Pharmacy has completed the medication reconciliation. Reviewed med rec done by nursing
[2024-09-03 12:17] LABS: INTERNATIONAL NORM RATIO 1.1 (0.9-1.1); Prothrombin Time 12.5 SEC (10.9-12.4)
[2024-09-03 12:20] LABS: Partial Thromboplastin Time 35.5 SEC (26.0-36.8)
--- NOTE | 2024-09-03 12:31 | MHC.SHP ---
Pre-Procedural Eval Section A - 24 Hr Update-Section A only Date of Service: 09/03/24 The patient is an INPATIENT: Yes The patient has been examined within 24 hours of the surgical procedure. The History & Physical has been completed within 30 days and I have reviewed it.: Yes Section B - Complete if H&P > 30 days Chief Complaint: Morbid obesity Relevant Family History (Specify if Yes): No Relevant Social History: None Present Medications: None Medical History: No relevant PMH History of Previous Operations: No relevant previous surgery Allergies: Allergies Allergy/AdvReac Type Severity Reaction Status Date / Time No Known Allergies Allergy Verified 09/03/24 11:41 Review of Systems Sugical H&P ROS: Negative: Constitution, Cardiovascular, Respiratory, Neurological, Psychiatric, Hem-Onc, Allergic/Immunologic, Gastrointestinal, Genitourinary, Musculoskeletal, Integumentary, Endocrine and Eyes/Ears/Nose/Throat Exam Surgical H&P Exam: Normal: HEENT, Normal: Heart, Normal: Lungs, Normal: Extremities, Normal: Abdomen, Normal: Skin and Normal: Neurological Plan Diagnosis/Plan: Unchanged I have reviewed the history and physical and performed a pertinent physical examination on my patient. No changes have occurred unless specified. Time Spent With Patient Time: Total time managing care of this patient today ____ minutes.
--- NOTE | 2024-09-03 12:35 | PM.OP ---
Brief Operative Note Date of Service: 09/03/24 Pre-op diagnosis: Morbid obesity Post-op diagnosis: same (& congenital abdominal adhesions) Procedure: INITIAL PATIENT BMI ON PRESENTATION AT OUR OFFICE:44.9 kg/m2 LAST BMI BEFORE SURGERY: 43.7 kg/m2 COMORBIDITIES: liver fibrosis ?The patient presented to the Weight Management Program with significant obesity that was negatively impacting the patient's comorbidities as listed above.? The program is a phased program with a special focus on preoperative medical weight management to promote substantial weight loss and prepare the patients for the second phase of the program: bariatric surgery. The patient participated in an intensive weekly lifestyle ?intervention and exercise program during which the patient ?has lost between the initial office visit and the last preoperative visit 18.7 lbs, or 7.4% of initial actual body weight. It was deemed appropriate for the patient to now have bariatric surgery. In light of the current Covid-19 pandemic and the well documented strong association of obesity and increased risk of worse outcomes if infected with Covid-19 (REFERENCES:https://pubmed.ncbi.nlm.nih.gov/29644011/,?https://pubmed.ncbi.nlm.nih.gov/91713150/), any delay in undergoing bariatric surgery may lead to the patient's worsening health condition and increased?risk of more severe Covid-19 disease if infected. In addition a recent?study from [facility] published in [facility] [employer] on 10/24/2021 ([email or web address]) found that, among patients with obesity, substantial weight loss achieved with surgery was associated with improved outcomes of COVID-19 infection. The findings suggest that obesity can be a modifiable risk factor for the severity of COVID-19 infection. In addition, the patient met the BMI-criteria for bariatric surgery based on the BMI on initial presentation. The patient should not be penalized for achieving such weight loss because ?it is not sustainable long-term without surgical intervention and it was achieved in preparation for bariatric surgery ?under my direction and based on my published research ([email or web address]).[email or web address] and?[email or web address].soard.org/article/[email or web address]/pdf) ?that a 10% preoperative weight loss improves long-term weight loss after surgery and reduces perioperative complications.? Insurance carriers such as [facility] have endorsed my recommendations ?and have included in their policies criteria to include a 10% preoperative weight loss requirement. PROCEDURE: Esophago-gastroscopy, laparoscopic lysis of adhesions, laparoscopic sleeve gastrectomy and laparoscopic gastropexy INDICATIONS: This is a 18 year-old female who was electively scheduled for laparoscopic, possibly open sleeve gastrectomy. The risks and complications of the procedure were discussed with the patient in advance, particularly the possibility of ; pulmonary embolism; staple line leak; bleeding; GERD; cardiac, pulmonary, or renal complications; as well as long-term problems such as insufficient weight loss, vitamin deficiency, strictures, or ulcers. The patient understood all the risks, and was in agreement to proceed with surgery. DESCRIPTION OF PROCEDURE: After informed consent was obtained from the patient, the patient was given preoperative antibiotics, and was transferred to the operating room. After successful induction of general anesthesia, pneumatic compression devices were placed on both lower extremities. An upper endoscopy was performed next. The oropharynx and esophagus appeared to be within normal limits. There was no diaphragmatic hernia present consistent with the findings of the preoperative upper GI. The stomach was entered. Then after all fluid and air were suctioned and the stomach was fully decompressed, the scope was withdrawn and secured in the mid esophagus. The patient was then prepped and draped in the usual sterile manner, and abdominal access was established at the right upper quadrant with the Carmina technique. A 12 mm blunt port was inserted, and the abdomen was insufflated with CO2 to a pressure of 15 mmHg. Under direct visualization, additional ports were placed, specifically two 5 mm Versi-step ports to the left upper quadrant, and a 5 mm Versi-Step port to the right upper quadrant. 1% lidocaine plain was used to infiltrate all port sites as well as all fascia defects. Following that, the patient was placed in a steep reverse Trendelenburg position. An additional 5 mm port was placed to the right flank for the Mediflex retractor that was used to retract the left lobe of the liver. The gastro-esophageal fat pad was opened with the ultrasonic device (Thfranceserbeat, Olympus) and the anterior esophagus and hiatus were exposed. The angle of His was opened with the ultrasonic device the fundus of the stomach from any diaphragmatic and splenic attachments. I then opened the gastrocolic ligament between the transverse colon and the greater curvature of the stomach with the ultrasonic device to enter the lesser sac and facilitate the ligation of the short gastric vessels. I started at a mid-point along the greater curvature and using the Thunderbeat, all short gastric vessels were divided all the way to the angle of His until the left rangel was completely dissected at its entirety. I then divided the gastro-colic ligament distally to a distance of about 3-4 cm proximal to the pylorus. There were extensive congenital adhesions between the pancreas and posterior gastric wall. Those were lysed completely with the ultrasonic device. Adhesiolysis took approximately 45 min to complete. The stomach was then divided transversely with three Endo WALKER-45 purple and three WALKER-60 articulating purple loads using the Improve DigitalIA stapler and loads. Every effort was made that the gastric sleeve had a tubular shape and an even caliber throughout. Once the sleeve resection was completed, the staple line of the gastric sleeve was reinforced with Hemoclips. The resected stomach was retrieved without difficulty from the Carmina port. A gastropexy was then performed in order to prevent postoperative GERD and partial gastric volvulus. Several interrupted 2.0 Surgidac sutures were placed between the sleeve's staple line and the previously divided greater omentum and gastro-colic ligament using the Endo-Stitch device. ?An upper endoscopy was performed. There was no narrowing at the GE junction. The scope was easily advanced all the way to the pylorus which was clearly visualized. There was no narrowing anywhere and the sleeve's caliber was even throughout. The sleeve's staple line was inspected and there was no evidence of ischemia, bleeding or dehiscence. At that point the gastroscope was withdrawn from the patient?s mouth while we were decompressing the bowel and the stomach from any remaining air. I looked into the lesser sac to see how the sleeve was situating and it was situating well. There was no bleeding from the staple line, spleen, or short gastric vessels. The Mediflex retractor was removed, and the undersurface of the liver was inspected and there was no bleeding. The patient was placed in supine position. I closed the fascial defect of the 12 mm port site with a figure of eight #1 Polysorb suture. Then 30cc Ropivacaine plain with 10 mg of Dexamethasone were used to infiltrate the fascial closure as well as all skin incisions. At this point, the abdomen was deflated, all ports were removed under direct vision, and no bleeding was noted from any of the port sites. The skin incisions were irrigated with saline and were closed with 4-0 absorbable monofilament sutures. Steri-Strips and OpSites were used to cover all incisions. The patient was extubated and was transferred in stable condition to the recovery room for further care. I was present and performed all marti parts of the procedure. 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 There were no residents to assist with this case. Bart Fiore MD, PhD, FACS Surgeon: Josias Fiore MD Anesthesia: GETA, local and other (TAP block) Was an Desktop Publishing Operator used for this Procedure?: No Desktop Publishing Operator: Siomara Rodríguez Estimated blood loss (mL): 10 IV fluids (mL): 1,800 Urine output (mL): 0 (No Flowers to record output) Pathology: other (Stomach) Condition: stable Disposition: PACU
[2024-09-03] MEDS: Lactated Ringers 1,000 ML 999 ML IV (12:36)
[2024-09-03] MEDS: Aprepitant 32 MG/4.4 ML VIAL IVPUSH (12:37)
--- NOTE | 2024-09-03 12:38 | PM.PNGS ---
Subjective Subjective Date of Service: 09/04/24 Interval history: Feels well. Mild incisional pain. She is tolerating phase 1 bariatric diet Physical Exam Vital Signs: Vital Signs: Last Vital Signs Temp 98.3 F 09/03/24 12:17 Pulse 56 09/03/24 12:17 Resp 16 09/03/24 12:17 BP 112/69 09/03/24 12:17 Pulse Ox 98 09/03/24 12:17 O2 Del Method Room Air 09/03/24 12:17 BMI result Body Mass Index 42.5 GI: Inspection: Yes normal to inspection, Yes incision (clean, dry and intact) and Yes obesity Palpation (GI): Soft to palpation Extrem: Right lower extremity: normal to inspection (no calf tenderness) Left lower extremity: normal to inspection (no calf tenderness) Objective Data Active Medications Lactated Ringer's (Lr) 1,000 mls @ 100 mls/hr IVCONT .Q10H CARINA Lactated Ringer's (Lr) 1,000 mls @ 80 mls/hr IVCONT .[id number] [facility] Last Admin: 09/03/24 12:36 Dose: Not Given Documented By: KENJI Non-Admin Reason: Duplicate Order Lactated Ringer's (Lr) 1,000 mls @ 999 mls/hr IV .Q1H1M [facility] Stop: 09/03/24 13:45 Last Admin: 09/03/24 12:36 Dose: 999 mls/hr Documented By: KENJI Labs 09/04/24 06:10 09/03/24 16:02 Labs: Laboratory Results - last 24 hr 09/03/24 09/03/24 09/03/24 09:24 11:12 12:03 PT 12.5 H INR 1.1 APTT 35.5 Urine Test NEGATIVE Blood Type O Positive Antibody Screen NEGATIVE Procedures Date of Service Date of Service: 09/04/24 Progress Note: A&P Assessment and plan (1) Morbid obesity: Status: Acute Assessment and Plan: s/p laparoscopic sleeve gastrectomy, lysis of adhesions and gastropexy Doing well Will check am labs and if OK the patient will be discharged home (2) Congenital intra-abdominal adhesions: Status: Acute (3) S/P laparoscopic sleeve gastrectomy: Status: Acute Time Spent With Patient Time: Total time managing care of this patient today ____ minutes. Quality Stroke Does the patient have a stroke diagnosis?: No VTE Prior VTE?: No VTE Risk Level:: Surgical - moderate VTE Device Contraindication: N/A - Device Ordered VTE Drug Contraindication: Treatment Not Indicated
--- NOTE | 2024-09-03 15:30 | PM.DS ---
DS: Providers Provider Date of Service: 09/04/24 Date of admission: 09/03/24 11:35 Primary care physician: Ольга Godinez MD DS: Diagnosis Discharge Diagnosis (1) Morbid obesity: Status: Acute DS: Summary Hospital Course Hospital Course: ADMITTING DIAGNOSIS: morbid obesity,?NAFLD, ADHD ? DISCHARGE DIAGNOSIS: same, s/p laparoscopic sleeve gastrectomy and gastropexy ? PAST SURGICAL HISTORY: S/P LASIK surgery of both eyes (06/12/24) History of esophagogastroduodenoscopy (EGD) (07/15/24) Hx of wisdom tooth extraction Hx of breast reduction, elective (~2021) Hx of tonsillectomy ? PROCEDURE: upper endoscopy, laparoscopic sleeve gastrectomy and gastropexy ? DISCHARGE SUMMARY: ? History of Present Illness: ? The patient is a? 18? year-old woman with a BMI of?42.5 ? kg/m2 and associated co-morbidities as described above. The patient had extensive work-up, lost?17 lbs preoperatively and was electively scheduled for laparoscopic, possible open sleeve gastrectomy and gastropexy. Risks and complications of the surgery were discussed with the patient in advance, particularly the possibility of , pulmonary embolism, anastomotic leak, bleeding, bowel injury, GERD, cardiac, renal or pulmonary complications. The patient understood all the risks and was in agreement with the surgical plan. ? Hospital Course: ? The patient underwent an uneventful laparoscopic sleeve gastrectomy with gastropexy on the day of admission. Postoperatively, the patient was transferred to the surgical floor. The patient received IV Acetaminophen and IV dilaudid for pain control. Patient was started on bariatric phase 1 diet POD #0. On postoperative day one, the patient was feeling well without nausea, vomiting, fevers, or tachycardia. The patient had some mild incisional pain and the abdomen was soft.? ? On the morning of postoperative day one, the patient was continued on 1 ounce of water or ice every half hour. During the day, the patient did fairly well, having some incisional pain, but able to ambulate adequately and to tolerate liquids well. ? Since the patient is doing well, we decided that the patient was ready to be discharged. The patient was given instructions to follow-up with me next week and to call my office for any fever over 101, persistent abdominal pain, nausea, vomiting, GERD, symptoms of DVT such as calf tenderness, or leg swelling, or pulmonary embolism such as chest pain or shortness of breath.? The patient was also instructed to drink 40-60 ounces of liquids per day using the 1-ounce cups. The patient had been given prescriptions for Tylenol for pain, Zofran prn for nausea, and pantoprazole and carafate previously. The patient was encouraged to ambulate and use the incentive spirometer. The patient was allowed to shower, but no baths, and encouraged to stay active at home. All of these instructions were given to the patient personally. All questions were answered and the patient understood all instructions, the instructions were also given to the patient in print. Time Attestation Discharge Coordination Time (in mins): 30 Quality: Safe Use of Opioids Does Pt have an Active Cancer Diagnosis on the Problem List?: No Quality: Stroke Does the patient have a stroke diagnosis?: No Physical Exam Vital Signs: Vital Signs: Last Vital Signs Temp 98.3 F 09/03/24 12:17 Pulse 56 09/03/24 12:17 Resp 16 09/03/24 12:17 BP 112/69 09/03/24 12:17 Pulse Ox 98 09/03/24 12:17 O2 Del Method Room Air 09/03/24 12:17 BMI result Body Mass Index 42.5 DS: Data Data Completed and Pending Pending studies at discharge: Pending at discharge 09/03/24 14:55 Surgical [PTH] Routine Labs on day of discharge: Laboratory Results - last 24 hr 09/03/24 09/03/24 09/03/24 09:24 11:12 12:03 PT 12.5 H INR 1.1 APTT 35.5 Urine Test NEGATIVE Blood Type O Positive Antibody Screen NEGATIVE Discharge Plan Discharge Anticipated Discharge Date/Time: 09/04/24 10:00 Patient Disposition: Home, Self-Care Discharge Diagnosis: s/p laparoscopic sleeve gastrectomy with gastropexy Referrals: Ольга Godinez MD [Primary Care Provider] - 1 Week Discharge Medications: Continued pantoprazole 40 mg tablet,delayed release (DR/EC) 40 mg PO DAILY Qty: 90 0RF sucralfate 100 mg/mL suspension 10 ml PO BID Qty: 600 2RF ondansetron 4 mg tablet,disintegrating 4 mg PO Q12H Qty: 20 0RF Rx Instructions: Only take one every 12 hours as needed if you have nausea Discontinued dextroamphetamine-amphetamine [Adderall XR] 30 mg capsule,extended release 24hr 30 mg PO DAILY polyethylene glycol 3350 17 gram/dose powder 17 g PO DAILY Qty: 238 0RF Rx Instructions: Mix each measuring cup with 8oz of water, Crystal light, or Gatorade zero, or Propel and do 7 measuring cups on 09/01/24 and another 7 measuring cups on 09/02/24 Discharge Orders: Discharge Order (Routine); Ordered 09/04/24 Ordered By: Josias Fiore Activity on Discharge: As tolerated Stand Alone Forms: Patient Portal Discharge page Print Language: [place]ese Care Plan Goals: weight loss Health Concerns: morbid obesity Plan of Treatment: No tub baths, sex or returning to work until discussed at first post op appointment. No alcohol, tobacco or illegal drug use. Continue to use incentive spirometer hourly while awake. Walk in home for 5- 10 minutes every 2 hours during the first week. Wear abdominal binder with activity. Follow all meal plan instructions from your bariatric surgeon. Review bariatric handbook and call with any questions. Discharge Instructions 1. Please call your doctor or come back to the emergency room should any new symptoms arise. 2. Activity: abstain from alcohol,? limited stair climbing, no bending, no driving, no exercise, no illicit substances, no lifting, no sex, no tub bath, no work. 4. Diet: follow your bariatric surgeons recommendations for advancing diet. 5. Dressing Change/Wound Care: Your incisions are covered with waterproof dressings. You can shower with these and pat dry. Do not rub over dressings or incisions. If the area is tender, you may apply an ice pack for short intervals (no more than 20 minutes on, followed by at least 20 minutes off). Do not apply heat. Do not use creams, lotions, or topical antibiotics unless instructed to do so by your surgeon. 6. Call your doctor if: - Your temperature exceeds 101.5 F - You experience excessive pain or swelling - You have an unexpected reaction to medication - You have excessive bleeding - You experience continued vomiting/nausea - Your incision begins to separate - Your incision shows signs of infection such as increased redness, swelling, excessive pain, heat, or drainage (light blood or clear fluid is normal) General instructions: No lifting greater than 10 lbs for the next 6 weeks[address] within 24 hours of taking narcotic pain medications. If you do not move your bowels in the next 2 days, please take milk of magnesia over the counter. Please follow the post op diet and do not advance your diet until you are seen in the office in about 2 weeks. Please walk around your home every hour or two to prevent blood clots from forming in your legs. You do not need to wake from sleeping to walk. Please sleep in a bed or couch to prevent kinking at the hips and knees. Please take your incentive spirometer (your lung integrated circuit fabricator) home with you and use it for the next few days to prevent pneumonias. You may shower, no hot tubs, baths or swimming pools. Please call the office with any questions or concerns such as increasing abdominal pain, fever, chills, shortness of breath, chest pain, leg pain or swelling, or redness or drainage from your incisions. Please make sure you are consuming 40-60 ounces of total fluids per day. Avoid all carbonation. Do not hesitate to contact the office with any questions at . The patient's medical history has been reviewed and they are considered low risk for post op DVT and therefore DVT prophylaxis is not considered necessary. Travel after surgery was reviewed. The patient has not disclosed any travel plans during the first 30 days after surgery and they have been advised that within the first 30 days after surgery any bus, plane, train or car travel over 2 hours in duration is contraindicated due to the possibility of developing blood clots from immobility. Any travel, needs to include periods of ambulation of 10 minutes in duration every 2 hours.? The patient was instructed to discuss any plans for travel during this period with their bariatric surgeon. Assessment: s/p laparoscopic sleeve gastrectomy with gastropexy Discharge Date/Time: 09/04/24 08:52
[2024-09-03] MEDS: fentaNYL citrate/PF 100 MCG/2 ML VIAL 25 MCG IVPUSH (16:00)
[2024-09-03 16:18] LABS: Hematocrit 41.5 % (37.0-47.0); Hemoglobin 13.5 g/dl (12.0-16.0)
[2024-09-03] MEDS: Lactated Ringers 1,000 ML 100 ML IVCONT (16:37)
[2024-09-03 16:42] LABS: Anion Gap 16 (12-20); Blood Urea Nitrogen 14 mg/dL (9-16); Calcium 9.7 mg/dL (8.4-10.2); Carbon Dioxide 23 mmol/L (22-29); Chloride 104 mmol/L (96-108); Creatinine Clr Calc Pharmacy 99.1; Estimated Glomerular Filt Rate > 60; Glucose Random 103 mg/dL (60-115); Potassium 4.3 mmol/L (3.3-5.1); Sodium 139 mmol/L (135-145)
[2024-09-03] MEDS: ceFAZolin Sodium/Dextrose,Iso 2 GM/50 ML PIGGYBACK IV (17:27)
[2024-09-03] MEDS: Acetaminophen 1,000 MG/100 ML PIGGYBACK 16.7 MG IV (20:49)
[2024-09-03] MEDS: Famotidine/PF 20 MG/2 ML VIAL IVPUSH (20:53)
[2024-09-03] MEDS: 0.9 % Sodium Chloride Flush 3 ML SYRINGE IVFLUSH (20:53)
[2024-09-04] MEDS: Acetaminophen 1,000 MG/100 ML PIGGYBACK 16.7 MG IV (03:07)
[2024-09-04] MEDS: Lactated Ringers 1,000 ML 100 ML IVCONT (03:08)
[2024-09-04 03:21] VITALS: BP 120/79; PULSE 61; RESP 16; TEMP 36.1; O2SAT 97
[2024-09-04] MEDS: Famotidine/PF 20 MG/2 ML VIAL IVPUSH (07:27)
[2024-09-04 07:32] LABS: MANUAL DIFF FLAG NO
[2024-09-04 07:40] VITALS: BP 129/70; PULSE 54; RESP 16; TEMP 36.2; O2SAT 97
[2024-09-04 07:40] LABS: Basophils Percent Auto 0.1 % (0-2); Eosinophils Percent Auto 0.1 % (0-4); Hemoglobin 12.9 g/dl (12.0-16.0); Imm Gran Abs Auto 0.08 X10*3/uL (0.00-0.03); Imm Gran Pct Auto 0.5 % (0.0-0.4); Lymphocytes Absolute Auto 1.2 X10*3/uL (1.2-4.9); Lymphocytes Percent Auto 7.7 % (20-40); Mean Corpuscular HGB Conc 32.3 g/dl (31.0-35.0); Mean Corpuscular Hemoglobin 25.4 pg (27.0-33.0); Mean Corpuscular Volume 78.7 fL (80.0-98.0); Mean Platelet Volume 11.3 fL (9.4-12.3); Monocytes Absolute Auto 0.3 X10*3/uL (0.1-1.2); Monocytes Percent Auto 1.6 % (2-11); Neutrophils Absolute Auto 14.2 x10*3/uL (2.0-8.3); Platelet Count 319 X10*3/uL (160-400); Red Blood Count 5.08 X10*6/uL (4.20-5.50); White Blood Count 15.8 X10*3/uL (4.8-10.8)
[2024-09-04 07:54] LABS: Anion Gap 17 (12-20); Blood Urea Nitrogen 11 mg/dL (9-16); Calcium 9.2 mg/dL (8.4-10.2); Carbon Dioxide 19 mmol/L (22-29); Chloride 105 mmol/L (96-108); Creatinine Clr Calc Pharmacy 130.1; Estimated Glomerular Filt Rate > 60; Glucose Random 96 mg/dL (60-115); Potassium 4.6 mmol/L (3.3-5.1); Sodium 136 mmol/L (135-145)
--- NOTE | 2024-09-04 09:01 | HO.POSTANES ---
Post Anesthesia Evaluation Post Anesthesia Evaluation Date of Service: 09/03/24 Vital Signs: Vital Signs Temp Pulse Resp BP Pulse Ox O2 Del Method 09/04/24 07:40 97.2 F 54 16 129/70 97 Room Air 09/04/24 03:21 96.9 F 61 16 120/79 97 Room Air 09/03/24 23:49 96.8 F 54 16 118/57 L 97 Room Air Anesthesia: General Endotracheal-GETA Mental Status: Awake Pain Control: Satisfactory Nausea/Vomiting: None Hydration: Adequate Anesthesia-Related Issues: No Anes. Related Issues
--- NOTE | 2024-09-04 09:07 | MHC.CM.PN ---
Patient dc'd home self care prior to CM assessment
== END 2024-09-04 08:52 | disposition home or self-care (01) | DRG 403 ==
LOC: HO.SSSA 11:37 → HO.S3 15:32
PROVIDERS: Nurse Practitioner; Physician Assistant Surgical; Admitting Provider Surgery; PCP Pediatrics; Visit Provider Surgery
PROC: 0DB64Z3 Excision of Stomach, Percutaneous Endoscopic Approach, Vertical (ICD-10-PCS; CPT 43845; principal; 2024-09-03 12:20)
DX: E66.01 Morbid (severe) obesity due to excess calories (principal); Q43.3 Congenital malformations of intestinal fixation; K74.00 Hepatic fibrosis, unspecified; K76.0 Fatty (change of) liver, not elsewhere classified; F90.9 Attention-deficit hyperactivity disorder, unspecified type; Z79.899 Other long term (current) drug therapy; Z68.56 Body mass index [BMI] pediatric, greater than or equal to 140% of the 95th percentile for age
CPT/HCPCS: 36415; 80048; 81025; 85014; 85018; 85025; 85610; 85730; 86850; 86900; 86901; 88304; 88305; 88307; 88342; A4649; C9145; J0131; J0690; J1100; J1171; J2003; J2250; J2405; J2704; J2795; J3010; J7120

== ENCOUNTER → 2024-09-03 11:35 | Outpatient (BNV) | payer OTHER, SELFPAY | PROVIDERS: Admitting Provider Surgery; PCP Pediatrics; Visit Provider Surgery | DX: E66.01 Morbid (severe) obesity due to excess calories (principal) | CPT/HCPCS: 43659; 43775; 99024; 99499 ==

== ENCOUNTER 2024-09-09 10:34 | Outpatient (AMB) | payer OTHER, SELFPAY ==
--- NOTE | 2024-09-09 10:46 | A.OFFVIS_ITS ---
VS Expanded 09/09/24 11:32 BP 126/72 Blood Pressure Location Rt brachial Blood Pressure Position Sitting Pulse 74 Pulse Source Pulse Oximeter Temp 96.7 F L Temperature Source Temporal Artery Scan Pulse Oximetry 98 Oxygen Delivery Method Room Air Height 5 ft 2.5 in Weight 229 lb 6.4 oz BMI 41.3 Body Fat % 49.7 Body Fat Mass 114.0 Fat Free Mass 115.4 Visceral Fat Rating 11.0 Body Water % 36.3 Body Water Mass 83.4 Muscle Mass/Score 109.6 Basal Metabolic Rate/Score 1,735 Intake Visit Reasons: (OV) PO LSG 09/03/24 Allergies No Known Allergies Allergy (Verified 09/03/24 11:41) HPI Comments Details: Patient is a pleasant 18-year-old female who returns to the office today in follow-up. She is 6 days post sleeve gastrectomy performed on 09/03/2024. She is tolerating to Atkins ready to drink shakes, 8 oz of each shake and proximally 30 oz of water. She has moved her bowels. PFSH Medical History (Updated 09/05/24 @ 00:03 by Background Darrell) Constipation ADHD Surgical History (Updated 09/05/24 @ 00:03 by Background Darrell) S/P LASIK surgery of both eyes (06/12/24) History of esophagogastroduodenoscopy (EGD) (07/15/24) Hx of wisdom tooth extraction Hx of breast reduction, elective (~2021) Hx of tonsillectomy Family History (System 08/28/24 @ 11:40 by Gali Hebert) Mother No problems noted. Father No problems noted. Sister No problems noted. Brother No problems noted. Brother No problems noted. Social History (Updated 08/28/24 @ 14:13 by Ольга Clifford RN) Household Members: Family Housing: House Are you a primary healthcare representative to a significant other at home: No Do you presently have visiting nurse or other home services: No 75 years or older and lives alone: No Alcohol intake: never Patient Tobacco Use Status: Never used Tobacco e-Cigarette/Vaping Use: Never Used Female Reproductive History Menstrual Age of Menarche: 12 Physical Exam Vital Signs: Last Vital Signs Temp 96.7 F L 09/09/24 11:32 Pulse 74 09/09/24 11:32 BP 126/72 09/09/24 11:32 Pulse Ox 98 09/09/24 11:32 Oxygen Delivery Method Room Air 09/09/24 11:32 BMI result Body Mass Index 41.3 GI Inspection: Yes incision (Clean, dry, intact.) Assessment & Plan Assessment & Plan (1) S/P laparoscopic sleeve gastrectomy: Code(s): Z98.84 - Bariatric surgery status Category: Surgical Plan: POD 6 s/p LSG on 09/03/[address] Fiore Weight loss prior to surgery was 20 pounds or 7.8 % TBWL. Original weight on 04/28/2024 was 253.4 pounds and op weight was 233.4 pounds. Be sure to text Dr Fiore exactly 1 week after surgery your weight from your home scale so he can adjust your meal plan. Continue meal plan until f/u sofi Ruiz in 2 weeks May shower, no submersion in bath for another week Continue abdominal binder with activity and exercise for the next 2 weeks. Exercise prior to surgery was walking outside and treadmill and may resume No abdominal exercises for 6 weeks post operatively Will be emailed link to post op video for review Reminded of the pace of drinking, 2 mL per minute, 1 oz/15 min.
[2024-09-09 11:32] VITALS: BP 126/72; PULSE 74; TEMP 35.9; O2SAT 98; BMI 41.3
== END 2024-09-09 14:06 | disposition home or self-care (01) ==
LOC: HO.HBS 10:34
PROVIDERS: PCP Pediatrics; Visit Provider Physician Assistant Surgical
DX: Z98.84 Bariatric surgery status (principal)
CPT/HCPCS: 99024

== ENCOUNTER → 2024-09-09 10:34 | Outpatient (BNVA) | payer OTHER, SELFPAY | PROVIDERS: PCP Pediatrics; Visit Provider Physician Assistant Surgical | DX: Z48.815 Encounter for surgical aftercare following surgery on the digestive system (principal); Z98.84 Bariatric surgery status | CPT/HCPCS: 99212 ==

== ENCOUNTER 2024-10-01 11:35 | Outpatient (AMB) | payer OTHER, SELFPAY ==
--- NOTE | 2024-10-01 11:36 | A.OFFVIS_ITS ---
VS Expanded 10/01/24 11:44 BP 128/65 Blood Pressure Location Rt brachial Blood Pressure Position Sitting Pulse 67 Pulse Source Pulse Oximeter Temp 97.3 F Temperature Source Temporal Artery Scan Pulse Oximetry 97 Oxygen Delivery Method Room Air Height 5 ft 2.5 in Weight 221 lb BMI 39.8 Body Fat % 45.7 Body Fat Mass 101.0 Fat Free Mass 120.0 Visceral Fat Rating 10.0 Body Water % 39.1 Body Water Mass 86.4 Muscle Mass/Score 113.8 Basal Metabolic Rate/Score 1,770 Intake Visit Reasons: post op - lsg 09/03/2024 Allergies No Known Allergies Allergy (Verified 10/01/24 11:40) HPI Comments Details: This?a?18?yo female who is s/p LSG without hiatal hernia repair on?09/03/2024. Presents for 1 month post op visit. Weight today is 221 pounds, with a BMI of 39.8. There has been a 32.4 pound weight loss,(initial weight 253.4 pounds) s mark starting the program on 04/28/2024 reflecting a 12.7% total body weight loss and a weight loss of 12.4 pounds since surgery (operative weight 233.4 pounds) reflecting a 5.3% TBWL since surgery. No complaints of nausea, emesis, abdominal pain or reflux. Reports infrequent but normal bowel movements every [] days and uses stool softeners regularly. 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 Exercise routine includes: treadmill daily 30 min, 1 mi, 180 key, speed 2, incline 2-10 [facility] Medical History (Updated 09/05/24 @ 00:03 by Dionte Ramírez) Constipation ADHD Surgical History S/P LASIK surgery of both eyes (06/12/24) History of esophagogastroduodenoscopy (EGD) (07/15/24) Hx of wisdom tooth extraction Hx of breast reduction, elective (~2021) Hx of tonsillectomy Family History Mother No problems noted. Father No problems noted. Sister No problems noted. Brother No problems noted. Brother No problems noted. Social History (Updated 08/28/24 @ 14:13 by Ольга Clifford RN) Household Members: Family Housing: House Are you a primary healthcare or medical to a significant other at home: No Do you presently have visiting nurse or other home services: No 75 years or older and lives alone: No Alcohol intake: never Patient Tobacco Use Status: Never used Tobacco e-Cigarette/Vaping Use: Never Used Female Reproductive History Menstrual Age of Menarche: 12 Physical Exam Vital Signs: Last Vital Signs Temp 97.3 F 10/01/24 11:44 Pulse 67 10/01/24 11:44 BP 128/65 10/01/24 11:44 Pulse Ox 97 10/01/24 11:44 Oxygen Delivery Method Room Air 10/01/24 11:44 BMI result Body Mass Index 39.8 Const General: healthy appearing and no acute distress Resp Effort & Inspection: normal respiratory effort Auscultation: clear to auscultation bilaterally Cardio Rate: regular rate Rhythm: regular rhythm GI Auscultation: normal bowel sounds Extrem General: Yes normal to inspection Assessment & Plan Assessment & Plan (1) S/P laparoscopic sleeve gastrectomy: Code(s): Z98.84 - Bariatric surgery status Category: Surgical Plan: Patient continues to follow meal plan as outlined by Dr. Fiore. Encouraged to increase her speed on her treadmill and achieve a goal of 300 calories burned daily. We will have her return to the office in approximately 1 month. Encouraged to continue to text her weight weekly and with any questions or concerns
[2024-10-01 11:44] VITALS: BP 128/65; PULSE 67; TEMP 36.3; O2SAT 97; BMI 39.8
== END 2024-10-01 13:32 | disposition home or self-care (01) ==
PROVIDERS: PCP Pediatrics; Visit Provider Physician Assistant Surgical
DX: Z98.84 Bariatric surgery status (principal)
CPT/HCPCS: 99024

== ENCOUNTER → 2024-10-01 11:35 | Outpatient (BNVA) | payer OTHER, SELFPAY | PROVIDERS: PCP Pediatrics; Visit Provider Physician Assistant Surgical | DX: E66.9 Obesity, unspecified (principal); N92.0 Excessive and frequent menstruation with regular cycle; Z68.39 Body mass index [BMI] 39.0-39.9, adult; Z90.3 Acquired absence of stomach [part of] | CPT/HCPCS: 99212 ==

== ENCOUNTER 2024-11-06 16:10 | Outpatient (AMB) | payer SELFPAY ==
--- NOTE | 2024-11-06 16:10 | A.OFFVIS_ITS ---
VS Expanded 11/06/24 16:11 Height 5 ft 2.5 in Weight 209 lb BMI 37.6 Intake Visit Reasons: TV PO LSG 09/03/2024 Allergies No Known Allergies Allergy (Verified 10/01/24 11:40) HPI Comments Details: This?a?19?yo female who is s/p LSG without hiatal hernia repair on?09/03/2024. Presents for 2 month post op visit. Weight today is 209 pounds, with a BMI of 37.6. There has been a 44.4 pound weight loss,(initial weight 253.4 pounds) since starting the program on 04/28/2024 reflecting a 17.5% total body weight loss and a weight loss of 24.4 pounds since surgery (operative weight 233.4 pounds) reflecting a 10.4% TBWL since surgery. No complaints of nausea, emesis, abdominal pain or reflux. Reports infrequent but normal bowel movements every [] days and uses stool softeners regularly. Taking celebrate MVI She does report that she developed a blister to her abdomen this morning. 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 No compliants with her meal plan. She added a second shake during the day without communication and she was also doing 2 different eleni products, 1 was a 15 g shake and the other was a 23 g shake. wants food and would like to use the 23 g shake Present meal plan includes: Atkins RTD shake 15-23 gm, 6-8 atkins bar 12-3 16 gm atkins rtd shake, 4-6 Drinking 64 oz water ? 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 Father No problems noted. Sister No problems noted. Brother No problems noted. Brother No problems noted. Social History Household Members: Family Housing: House Are you a primary patient care provider to a significant other at home: No Do you presently have visiting nurse or other home services: No 75 years or older and lives alone: No Alcohol intake: never Patient Tobacco Use Status: Never used Tobacco e-Cigarette/Vaping Use: Never Used Female Reproductive History Menstrual Age of Menarche: 12 Telehealth Telehealth Telehealth Platform: Telephone Location of provider rendering services: practice address Location of patient: address on file Patient Identification confirmed using: Name, : Yes Telehealth method: voice only Patient verbally consented to treatment: Yes Patient verbally consented to billing insurance company: Yes Patient informed of any privacy concerns related to visit: Yes Minutes spent on Phone/Video with Pt.: 15 Assessment & Plan Assessment & Plan (1) S/P laparoscopic sleeve gastrectomy: Code(s): Z98.84 - Bariatric surgery status Category: Surgical Plan: Change meal plan: Atkins RTD shake 23 gm, 6-8 atkins bar 12-3 16 gm atkins rtd shake, 4-6 Meal at 7 with 4 forks of protein and 4 forks of cooked vegetables Encouraged to text weekly with weights as well with any questions or concerns. Discussed not changing the meal plan without communication. Return to clinic 1 month
[2024-11-06 16:11] VITALS: BMI 37.6
== END 2024-11-06 16:58 | disposition home or self-care (01) ==
LOC: HO.HBS 16:10
PROVIDERS: PCP Pediatrics; Visit Provider Physician Assistant Surgical
DX: Z98.84 Bariatric surgery status (principal)
CPT/HCPCS: 99024

== ENCOUNTER → 2024-11-06 16:10 | Outpatient (BNVA) | payer SELFPAY | PROVIDERS: PCP Pediatrics; Visit Provider Physician Assistant Surgical | DX: Z98.84 Bariatric surgery status (principal) | CPT/HCPCS: 99212 ==